=== PATIENT | male | born 1990 | race African-American/Black ===

== ENCOUNTER → 2016-06-15 | Emergency (ER) ==
[~2016-06-15] MED LIST: DECADRON IM ONE; TORADOL IM ONE
[2016-06-15 12:18] VITALS: BP 139/80
--- NOTE | 2016-06-15 13:23 | PROVIDER DOCUMENTATION ---
HPI-Musculoskeletal Pain/Inj - GENERAL Chief Complaint: Back Pain Stated Complaint: BACK PAIN Time Seen by Provider: 06/15/16 13:23 Source: patient - HX OF PRESENT ILLNESS-MUSKULOSKELTAL Nature of Presenting Problem: PATIENT REPORTS ONSET OF RIGHT LOWER BACK PAIN RADIATING DOWN RIGHT LEG X1 YEAR AGO. INCREASED PAIN X PAST 4 DAYS. DENIES ANY INJURY. Quality of Pain: reports: aching, burning, sharp Severity in ED: moderate Onset/Duration: other (1 YEAR AGO) Timing: changing over time, getting worse Modifying Factors: improves with: movement Any recent injury?: No Similar Symptoms Previously?: Yes Recently seen or treated by another doctor?: No - BACK & NECK PAIN/INJURY Back/Neck Pain Location: reports: lumbar spine Back/Neck Pain Radiation: reports: Buttocks (RIGHT), Upper Legs (RIGHT) Associated Symptoms: reports: denies symptoms History of Chronic Neck or Back Pain?: Yes - LOWER EXTREMITY PAIN/INJURY Lower Extremities Pain: thigh: right Review of Systems - Adult - REVIEW OF SYSTEMS - ADULT Constitutional: reports: no symptoms reported Eyes: reports: no symptoms reported Ears, Nose, Mouth & Throat: reports: no symptoms reported Cardiovascular: reports: no symptoms reported Respiratory: reports: no symptoms reported Gastrointestinal: reports: no symptoms reported Genitourinary: reports: no symptoms reported, see HPI Musculoskeletal: reports: see HPI Integumentary: reports: no symptoms reported Neurological: reports: no symptoms reported Psychiatric: reports: no symptoms reported Endocrine: reports: no symptoms reported Hematologic/Lymphatic: reports: no symptoms reported Allergic/Immunologic: reports: no symptoms reported Past History - Adult - PAST MEDICAL HISTORY-ADULT Review of Records: reports: Nursing Assessment Review, Medications Reviewed, Social history reviewed & non-contributory. Major Childhood Illnesses: reports: history unknown - PRIOR SURGERIES/PROCEDURES Surgical/Procedure History: reports: none - PRIOR HOSPITALIZATIONS Prior Hospitalizations: reports: none - IMMUNIZATION STATUS Childhood Immunizations: See Nurse Assessment Flu Vaccine: See Nurse Assessment - FAMILY HISTORY Family History: reviewed, not pertinent Physical Exam-Injury Related - Physical Exam-Injury Related Initial Vital Signs Reviewed: Yes General Appearance: appears well, alert Immobilization?: negative: backboard, C-collar, applied in ED, applied [employer] Eyes: PERRL/EOMI Head, Ears, Nose, Mouth & Throat: normocephalic/atraumatic, moist mucous membranes Neck: non-tender, full range of motion, supple Respiratory: lungs clear Cardiovascular: regular rate, rhythm Male Genitalia: deferred Rectal Exam: deferred Back Exam: no CVA tenderness, no vertebral tenderness, other (PARASPINOUS TENDERNESS RIGHT LOWER LUMBAR/SACARAL AREA). negative: CVA tenderness, decreased range of motion, ecchymosis, kyphosis, lordosis, muscle spasm, scoliosis, swelling, vertebral tenderness Extremity: normal range of motion, normal gait, normal capillary refill Integumentary: normal color, warm/dry Neurologic: grossly normal, no motor/sensory deficits Psych/Mental Status: normal mood/affect, normal thought content, normal thought process, oriented x 3 - Glascow Coma Score Best Eye Response ([place]): (4) open spontaneously Best Verbal Response ([place]): (5) oriented Best Motor Response ([place]): (6) obeys commands Progress - PLAN OF CARE/RESULTS Progress/Plan/Lab Results: Orders Category Date Time Status Dexamethasone [Decadron] Med 06/15/16 13:26 Discontinued 10 mg IM NOW ONE Ketorolac [Toradol] Med 06/15/16 13:27 Discontinued 60 mg IM NOW ONE Departure - Departure Time of Disposition Order: 13:34 DIAGNOSIS: Lumbago with sciatica, right side Qualifiers: Chronicity: chronic Back pain laterality: right Qualified Code(s): M54.41 - Lumbago with sciatica, right side; G89.29 - Other chronic pain Disposition: HOME 01 Certified Medical Emergency: Emergent Condition: Good Prescriptions: Diclofenac Sodium 75 mg PO Q12H PRN #14 tablet.dr PRN Reason: Pain Prednisone 10 mg PO DIRECTED #1 tab.ds.pk Referrals: Jose D Day MD [STAFF PHYSICIAN] - Call for Appoint. -1 week Forms: Return to School/Parent Work
== END | disposition home or self-care (01) ==
LOC: P.ED 12:09
DX: M54.41 Lumbago with sciatica, right side (principal); G89.29 Other chronic pain; M79.1 Myalgia; M79.651 Pain in right thigh
CPT/HCPCS: J1885

== ENCOUNTER 2016-06-19 11:39 | Emergency (ER) ==
--- NOTE | 2016-06-19 12:00 | PROVIDER DOCUMENTATION ---
HPI-Musculoskeletal Pain/Inj - GENERAL Chief Complaint: Extremity Pain Stated Complaint: BACK/LEG PAIN Time Seen by Provider: 06/19/16 11:53 Source: patient, old records - HX OF PRESENT ILLNESS-MUSKULOSKELTAL Nature of Presenting Problem: Pt presents to ED with c/o right leg pain that has been ongoing for several years. He reports he has been seeing a chiropractor but has had no relief. He says he had an MRI almost two years ago and was told he had a "cartilage" issue. He also reports that he was seen at [facility] on Tuesday for this same right leg pain and was prescribed some pain medication and anti-inflammatory medications that have not helped him. He states he is unable to walk or sleep. However, pt did walk into the ED. Denies any recent injury, loss of bowel and bladder function. Quality of Pain: reports: aching Severity in ED: moderate Onset/Duration: other (see hpi) Timing: still present Any recent injury?: No Similar Symptoms Previously?: Yes Recently seen or treated by another doctor?: Yes Review of Systems - Adult - REVIEW OF SYSTEMS - ADULT Constitutional: reports: no symptoms reported. denies: chills, fatique Eyes: reports: no symptoms reported. denies: discharge, dry eyes Ears, Nose, Mouth & Throat: reports: no symptoms reported. denies: ear discharge, ear pain Cardiovascular: reports: no symptoms reported. denies: chest pain, edema Respiratory: reports: no symptoms reported. denies: chronic cough, cough Gastrointestinal: reports: no symptoms reported. denies: abdominal pain, hematemesis Genitourinary: reports: no symptoms reported. denies: dysuria, discharge Musculoskeletal: reports: see HPI, back pain. denies: bone pain, joint pain, joint swelling Integumentary: reports: no symptoms reported. denies: hives, hair loss Neurological: reports: no symptoms reported. denies: ataxia, dizziness/vertigo Psychiatric: reports: no symptoms reported Endocrine: reports: no symptoms reported Hematologic/Lymphatic: reports: no symptoms reported Allergic/Immunologic: reports: no symptoms reported All Other Systems: Reviewed and Negative Past History - Adult - PAST MEDICAL HISTORY-ADULT Review of Records: reports: Old Records Reviewed, Nursing Assessment Review, Medications Reviewed, Social history reviewed & non-contributory. Major Childhood Illnesses: reports: history unknown Cardiovascular: reports: denies history Respiratory: reports: denies history Gastrointestinal: reports: denies history Obstetrical/Gynecological: reports: denies history Genitourinary: reports: denies history Musculoskeletal: reports: chronic pain, intervertebral disc disease Neurological: reports: denies history Endocrine/Immune: reports: denies history Other Conditions: reports: denies history - PRIOR SURGERIES/PROCEDURES Surgical/Procedure History: reports: none - PRIOR HOSPITALIZATIONS Prior Hospitalizations: reports: none - IMMUNIZATION STATUS Childhood Immunizations: See Nurse Assessment Flu Vaccine: See Nurse Assessment - FAMILY HISTORY Family History: reviewed, not pertinent Physical Exam-Injury Related - Physical Exam-Injury Related Initial Vital Signs Reviewed: Yes General Appearance: appears well, alert, no apparent distress Eyes: PERRL/EOMI, pink conjunctivae Head, Ears, Nose, Mouth & Throat: normocephalic/atraumatic, moist mucous membranes, normal ENT inspection Neck: non-tender, full range of motion, supple, normal inspection Respiratory: chest non-tender, lungs clear, normal breath sounds, no pleuratic chest pain, no respiratory distress, no accessory muscle use Cardiovascular: normal peripheral pulses, regular rate, rhythm Abdominal Exam: normal bowel sounds, non tender, soft, no organomegaly, no pulsatile mass Back Exam: no CVA tenderness, no vertebral tenderness, vertebral tenderness ( lumbar). negative: lordosis, muscle spasm Extremity: normal range of motion, non-tender, normal inspection, other (gait - pain c ambulation) Integumentary: normal color, warm/dry, blanching Neurologic: grossly normal, no motor/sensory deficits. negative: facial droop, focal weakness, motor weakness, sensory deficit Progress - PLAN OF CARE/RESULTS Progress/Plan/Lab Results: Orders Category Date Time Status LUMBAR SPINE W/O CONTRAST [CT] Stat Exams 06/19/16 12:15 Taken Dexamethasone [Decadron] Med 06/19/16 12:18 Discontinued 10 mg IM NOW ONE Morphine Med 06/19/16 12:18 Discontinued 4 mg IM NOW ONE Ondansetron [Zofran] Med 06/19/16 12:18 Discontinued 4 mg IM NOW ONE Vital Signs Temp Pulse Resp BP Pulse Ox 06/19/16 11:42 98.3 F 113 H 20 125/83 98 No Known Allergies Allergy (Verified 06/19/16 12:49) Diclofenac Sodium 75 mg PO Q12H PRN #14 tablet. 06/15/16 Prednisone 10 mg PO DIRECTED #1 tab.ds.pk 06/15/16 Will have pt f/u c a nurse specialist. He is in agreement. - CT/MRI 1 CT Study: Lumbar Spine Comparison with other Films: no changes (similar to MRI in 2014) CT Results: bilater L3 & L5 pares defects; spinal stenosis; no spondylolisthesis Departure - Departure Time of Disposition Order: 13:01 DIAGNOSIS: Lumbago with sciatica, right side Qualifiers: Chronicity: chronic Back pain laterality: right Qualified Code(s): M54.41 - Lumbago with sciatica, right side; G89.29 - Other chronic pain Disposition: HOME 01 Certified Medical Emergency: Emergent Condition: Good Additional Instructions: Take medication as prescribed. Follow up with an nurse specialist. ED Follow Up Instructions: You have been treated by a care provider in the Emergency Department. These instructions are being provided to you so you can have an understanding of how to care for yourself upon discharge. Upon discharge from the Emergency Department, you are responsible for making arrangements for follow-up care by a physician of your choice. Take all prescribed medications as directed. Return to the Emergency Department immediately for any new or worsening symptoms. You may call the Physician Referral phone number at [phone] to obtain a list of Physicians who are taking new patients. Prescriptions: Cyclobenzaprine [Flexeril] 10 mg PO TID #20 tablet Meloxicam [Mobic] 7.5 mg PO DAILY PRN PRN #15 tablet PRN Reason: Pain Referrals: None,PCP [Primary Care Provider] - Cem Price DO [STAFF PHYSICIAN] - Attestation - Physician/ ELIANA Attestation Patient care was provided by Advanced Practice Provider:: Yes Advanced Practice Provider:: Faraz Villatoro Advanced Practice Provider documentation review:: The Mid-level provider documentation, treatment plan and medical decision making was reviewed by the physician who agrees with all treatment and medical decision making by the MLP.
[2016-06-19] MEDS ORDERED: MORPHINE IM ONE (12:18)
[2016-06-19] MEDS ORDERED: ZOFRAN IM ONE (12:18)
[2016-06-19] MEDS ORDERED: DECADRON IM ONE (12:18)
--- NOTE | 2016-06-19 13:06 | Diag Imaging Result Document ---
PROCEDURE NAME: LUMBAR SPINE W/O CONTRAST - 06/19/2016 CT LUMBAR SPINE WITHOUT CONTRAST: A dose-reduction protocol was used. Axial and reformatted sagittal and coronal images are obtained. COMPARISON: No comparison exam. FINDINGS: There is mild central L5-S1 disk bulge into the anterior epidural fat. There are bilateral L5 pars interarticularis defects. There is no associated spondylolisthesis seen. There is mild posterior and left lateral bulging of the L4-5 disk. There is diffuse disk protrusion with osteophytes at L3-4. This combines with prominent posterior epidural fat to produce [id number] spinal stenosis at L3-4. There are bilateral L3 pars interarticularis defects. There is no associated spondylolisthesis at L3-4. There is no acute appearing fracture identified. There is no subluxation seen. There are no erosive or destructive changes identified. IMPRESSION: 1. Bilateral L5 pars interarticularis defects. No associated L5-S1 spondylolisthesis. 2. Posterior and left lateral L4-5 disk bulge. 3. Diffuse L3-4 disk protrusion with osteophytes. This combines with prominent posterior epidural fat to produce [id number] spinal stenosis at L3-4. 4. Bilateral L3 pars interarticularis defects. No associated L3-4 spondylolisthesis.
[2016-06-19 13:38] VITALS: BP 118/74
== END 2016-06-19 13:37 | disposition home or self-care (01) ==
LOC: ED 11:39
DX: M54.41 Lumbago with sciatica, right side (principal); M79.604 Pain in right leg; G89.29 Other chronic pain
CPT/HCPCS: 72131; 99282; J2270; J2405